=== PATIENT | female | born 1995 | race Caucasian/White ===

== ENCOUNTER 2017-04-15 21:05 | Emergency (ER) | payer SELFPAY ==
[2017-04-15 21:26] VITALS: BP 160/80
--- NOTE | 2017-04-15 21:55 | ED Physician Documentation ---
Female Urogenital Problems - HISTORIAN Historian: patient, spouse - HPI Stated Complaint: burning with urination low back and abd pain Chief Complaint: Female Urogenital Problems Additional Information: c/o ua freq burning low back and suprapubic pain hx freq uti's. is on old bactrim ds-will order more-has worked in past Onset: days ago (4) Severity: moderate - Vaginal Bleeding Sexual History: active - Associated Symptoms Urinary Symptoms: frequent urination, discomfort w/ urination, burning w/ urination, urgency w/ urination, pain w/ urination - ROS CONST: no problems GI/: decreased appetite. denies: nausea, vomiting CVS/RESP: none EYES/ENT: none NEURO/PSYCH: none MS/SKIN/LYMPH: none - PAST HX Past History: other (uti) Other History: bladder infection Allergies/Adverse Reactions: Allergies Allergy/AdvReac Type Severity Reaction Status Date / Time No Known Allergies Allergy Verified 04/24/16 16:49 Home Medications: Ambulatory Orders Medication Instructions Recorded Medroxyprogesterone Acetate 10 mg PO D #10 tablet 04/24/16 [Provera] Sulfamethoxazole/Trimethoprim 1 each PO BID 10 Days #20 tab 04/15/17 [Bactrim Ds] - SOCIAL HX Smoking History: less than 1 pack/day Alcohol Use: none Drug Use: none - FAMILY HX Family History: none - VITAL SIGNS Vital Signs: Vital Signs Temp Pulse Resp BP Pulse Ox 98.3 F 96 H 16 160/80 98 04/15/17 21:05 04/15/17 21:05 04/15/17 21:05 04/15/17 21:05 04/15/17 21:05 - REVIEWED ASSESSMENTS Nursing Assessment Reviewed: Yes Vitals Reviewed: Yes ED Results Lab/Radiology - Orders Orders: ED Orders Category Date Time Status Sulfamethoxazole/Trimethoprim [Bactrim Ds] Med 04/15/17 21:51 Once 1 each PO NOW ONE Female Urogenital Problems - EXAM General Appearance: mild distress EENT: eye inspection normal Neck: nml inspection Respiratory: no resp. distress, breath sounds nml CVS: reg rate & rhythm, heart sounds normal Abdomen: soft, non-tender ( slight suprapubic and epigastric areas) Back: other (renal punch test = normal) Skin: color nml, no rash, warm,dry. No: cyanosis, diaphoresis, pallor Extremities: non-tender, normal range of motion Neuro: oriented X3, motor nml, sensation nml, mood/affect nml Discharge Clincal Impression: UTI (urinary tract infection) Prescriptions: Sulfamethoxazole/Trimethoprim [Bactrim Ds] 1 each PO BID 10 Days #20 tab Referrals: Primary Doctor,No [Primary Care Provider] - 2 Days Home Medications: Ambulatory Orders Medroxyprogesterone Acetate [Provera] 10 mg PO D #10 tablet 04/24/16 Sulfamethoxazole/Trimethoprim [Bactrim Ds] 1 each PO BID 10 Days #20 tab Comments: cont urised plenty water w/meds Condition: Good Disposition: 01 HOME, SELF-CARE Decision to Admit: NO Decision Time: 21:58
[2017-04-15] MEDS: SULFAMETHOXAZOLE/TRIMETHOPRIM 1 EACH TABLET PO ONE (22:09)
[2017-04-16 05:49] LABS: APPEARANCE,URINE CLOUDY (CLEAR); COLOR,URINE YELLOW (YELLOW); OCCULT BLOOD,URINE NEGATIVE (NEGATIVE); UROBILINOGEN URINE 0.2 Eu (0.2-1.0)
== END 2017-04-15 22:19 | disposition home or self-care (01) ==
LOC: ED 21:05
DX: N39.0 Urinary tract infection, site not specified (principal)
CPT/HCPCS: 81002; 87086; 99283; A9270